=== PATIENT | male | born 2000 | race Caucasian/White ===

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

== ENCOUNTER 2020-07-05 15:01 | Emergency (ER) | payer BC ==
[~2020-07-05] VITALS: Ht 175.3 cm; Wt 52.2 kg
[2020-07-05] MEDS ORDERED: ONDANSETRON PF 4 MG/2 ML VIAL. IVP ONE (15:30)
[2020-07-05] MEDS ORDERED: IV NORMAL SALINE 1,000ML 1,000 ML IV SCH (15:30)
--- NOTE | 2020-07-05 15:40 | PHYS DOC ---
Past History Past Medical History: Asthma Additional Past Medical Histor: myocarditis Past Surgical History: Appendectomy, Cholecystectomy, Tonsillectomy Additional Past Surgical Histo: Neck surgery Smoking: Non-smoker Additional Smoking Information: vapes Alcohol Use: Rarely Drug Use: None Adult General Chief Complaint Chief Complaint: MULTIPLE COMPLAINTS [facility] HPI Patient is a 50-year-old male with a reported past medical history of asthma now presenting emergency department for new onset of nausea vomiting. Patient states he woke up at 9:00 this morning and had cold sweats. Patient states that since that time he has had 9 episodes of nonbloody nonbilious vomiting as well as watery diarrhea. Patient is complaining of mild midepigastric abdominal pain and also complains of sensation of difficulty breathing. Does complain of some chest tightness but denies any cough, fever, dizziness or lightheadedness. Review of Systems Review of Systems Constitutional: Denies fever or chills [] Eyes: Denies change in visual acuity, redness, or eye pain [] HENT: Denies nasal congestion or sore throat [] Respiratory: Denies cough or shortness of breath [] Cardiovascular: No additional information not addressed in HPI [] GI: Denies abdominal pain, nausea, vomiting, bloody stools or diarrhea [] : Denies dysuria or hematuria [] Musculoskeletal: Denies back pain or joint pain [] Integument: Denies rash or skin lesions [] Neurologic: Denies headache, focal weakness or sensory changes [] Endocrine: Denies polyuria or polydipsia [] All other systems were reviewed and found to be within normal limits, except as documented in this note. Current Medications Current Medications Current Medications Medications (Trade) Dose Ordered Sig/Faraz Start Time Stop Time Status Last Admin Dose Admin Ondansetron HCl (Zofran) 4 mg 1X ONCE 07/05/20 15:30 07/05/20 15:31 UNV Sodium Chloride 1,000 ml @ 1,000 mls/hr Q1H 07/05/20 15:30 07/05/20 16:29 UNV Allergies Allergies Allergies Coded Allergies Type Severity Reaction Last Updated Verified benzonatate Allergy Mild 07/05/20 Yes Physical Exam Physical Exam Constitutional: Well developed, well nourished, no acute distress, non-toxic appearance. [] HENT: Normocephalic, atraumatic, bilateral external ears normal, oropharynx moist, no oral exudates, nose normal. [] Eyes: PERRLA, EOMI, conjunctiva normal, no discharge. [] Neck: Normal range of motion, no tenderness, supple, no stridor. [] Cardiovascular:Heart rate regular rhythm, no murmur [] Lungs & Thorax: Bilateral breath sounds clear to auscultation [] Abdomen: Bowel sounds normal, soft, no tenderness, no masses, no pulsatile masses. [] Skin: Warm, dry, no erythema, no rash. [] Back: No tenderness, no CVA tenderness. [] Extremities: No tenderness, no cyanosis, no clubbing, ROM intact, no edema. [] Neurologic: Alert and oriented X 3, normal motor function, normal sensory function, no focal deficits noted. [] Psychologic: Affect normal, judgement normal, mood normal. [] Current Patient Data Vital Signs Vital Signs Date Time Temp Pulse Resp B/P (MAP) Pulse Ox O2 Delivery O2 Flow Rate FiO2 07/05/20 15:08 97.7 64 20 150/76 (100) 100 EKG EKG [] Radiology/Procedures Radiology/Procedures [] Heart Score C/O Chest Pain: Yes HEART Score for Chest Pain: HEART Score for Chest Pain Response (Comments) Value History Slighlty/Non-Suspicious 0 ECG Normal 0 Age < 45 0 Risk Factors No Risk Factors 0 Troponin < Normal Limit 0 Total 0 Risk Factors: Risk Factors: DM, Current or recent (<one month) smoker, HTN, HLP, family history of CAD, obesity. Risk Scores: Risk Factors: DM, Current or recent (<one month) smoker, HTN, HLP, family history of CAD, obesity. Course & Med Decision Making Course & Med Decision Making Pertinent Labs and Imaging studies reviewed. (See chart for details) 19-year-old male presenting the emergency department new onset of vomiting diarrhea most consistent with an acute gastroenteritis. No significant wheezing on exam. Will obtain KUB, labs and treat symptomatically and reevaluate. 17:07 -labs reviewed and unremarkable. Patient states his symptoms have improved. This time will discharge home with Zofran and PCP follow-up Estefanía Disclaimer Dragon Disclaimer This electronic medical record was generated, in whole or in part, using a voice recognition dictation system. Departure Departure: Impression: Primary Impression: Gastroenteritis Disposition: 01 DC HOME SELF CARE/HOMELESS Condition: GOOD Referrals: JJ BALDERRAMA (PCP) Patient Instructions: Viral Gastroenteritis Additional Instructions: EMERGENCY DEPARTMENT GENERAL DISCHARGE INSTRUCTIONS Thank you for coming to [facility] Emergency Department (ED) today and trusting us with you care. We trust that you had a positive experience in our Emergency Department. If you wish to speak to the department management, you may call the Director at [phone]. YOUR FOLLOW UP INSTRUCTIONS ARE FOLLOWS: 1. Do you have a private Doctor? If you do not have a private doctor, please ask for a resource list of physicians or clinics that may be able to assist you with follow up care. 2. The Emergency Physicain has interpreted your x-rays. The X-Ray specialist will also review them. If there is a change in the findings, you will be notified in 48 hours when at all possible. 3. A lab test or culture has been done, your results will be reviewed and you will be notified if you need a change in treatment. ADDITIONAL INSTRUCTIONS AND INFORMATION: 1. Your care today has been supervised by a physician who is specially trained in emergency care. Many problems require more than one evaluation for a complete diagnosis and treatment. We recommend that you schedule your follow up appointment as recommended to ensure complete treatment of you illness or injury. If you are unable to obtain follow up care and continue to have a problem, or if your condition worsens, we recommend that you return to the ED. 2. We are not able to safely determine your condition over the phone nor are we able to give sound medical advice over the phone. For these safety reasons, if you call for medical advice we will ask you to come to the ED for further evaluation. 3. If you have any questions regarding these discharge instructions please call the ED at [phone]. SAFETY INFORMATION: In the interest of safety, wellness, and injury prevention; we encourage you to wear your sealbelt, if you smoke; quite smoking, and we encourage family to use a protective helmet for bicycling and other sporting events that present an increased risk for head injury. IF YOUR SYMPTOMS WORSEN OR NEW SYMPTOMS DEVELOP, OR YOU HAVE CONCERNS ABOUT YOUR CONDITION; OR IF YOUR CONDITION WORSENS WHILE YOU ARE WAITING FOR YOUR FOLLOW UP APPOINTMENT; EITHER CONTACT YOUR PRIMARY CARE DOCTOR, THE PHYSICIAN WHOSE NAME AND NUMBER YOU WERE GIVEN, OR RETURN TO THE ED IMMEDIATELY. Scripts Ondansetron Hcl (ZOFRAN) 4 Mg Tablet 1 TAB PO PRN Q6HRS PRN for NAUSEA, #6 TAB Prov: NICK WATSON MD 07/05/20 NICK WATSON MD Jul 05, 2020 15:40
[2020-07-05 15:48] LABS: CALCIUM 9.5 mg/dL (8.5-10.1); GFR 96.3; POTASSIUM 4.3 mmol/L (3.5-5.1)
--- NOTE | 2020-07-05 15:52 | RAD ---
Supine abdomen. HISTORY: Abdominal pain Supine view was taken of the abdomen. There are juan from a prior surgery on the right. There is n onspecific bowel pattern without obstruction. There are no abnormal calcifications. IMPRESSION: 1. No bowel obstruction or acute finding in the abdomen. Electronically signed by: Masood Mariscal MD (07/05/2020 3:50 PM) [facility]
[2020-07-05 15:53] LABS: BASO # 0.1 x10^3/uL (0.0-0.2); BASO % 1 % (0-3); EOS # 0.1 x10^3/uL (0.0-0.7); EOS % 1 % (0-3); HEMATOCRIT 48.8 % (39.0-53.0); HEMOGLOBIN 16.4 g/dL (13.0-17.5); LYMPH # 0.5 x10^3/uL (1.0-4.8); LYMPH % 5 % (24-48); MEAN CORPUSCULAR HEMOGLOBIN 30 pg (25-35); MEAN CORPUSCULAR HGB CONC 34 g/dL (31-37); MEAN CORPUSCULAR VOLUME 90 fL (79-100); MONO # 0.2 x10^3/uL (0.0-1.1); MONO % 2 % (0-9); NEUT # 10.9 x10^3uL (1.8-7.7); NEUT % 92 % (31-73); PLATELET COUNT 216 x10^3/uL (140-400); RED BLOOD COUNT 5.46 x10^6/uL (4.30-5.70); WHITE BLOOD COUNT 11.8 x10^3/uL (4.0-11.0)
[2020-07-05 15:54] LABS: ALBUMIN 4.4 g/dL (3.4-5.0); ALBUMIN/GLOBULIN RATIO 1.2 (1.0-1.7); TOTAL BILIRUBIN 0.5 mg/dL (0.2-1.0)
[2020-07-05] MEDS ORDERED: ONDA4TAB7 PO (17:09)
[2020-07-05 17:20] VITALS: BP 119/68
[2020-07-05 17:37] LABS: BACTERIA,URINE 0 /HPF (0-FEW); BILIRUBIN,URINE NEG (NEG); CLARITY,URINE CLEAR; COLOR,URINE YELLOW; GLUCOSE,URINE NEG (NEG); NITRITE,URINE NEG (NEG); RBC,URINE 0 /HPF (0-2); UROBILINOGEN,URINE 0.2 mg/dL (0.2 mg/dL)
== END 2020-07-05 17:25 | disposition home or self-care (01) ==
LOC: ER 15:01
DX: K52.9 Noninfective gastroenteritis and colitis, unspecified (principal); R10.13 Epigastric pain; J45.909 Unspecified asthma, uncomplicated; F17.220 Nicotine dependence, chewing tobacco, uncomplicated; Z88.8 Allergy status to other drugs, medicaments and biological substances
CPT/HCPCS: 36415; 74018; 80053; 81001; 83690; 85025; 96361; 96374; 99284; J2405; J7030

== ENCOUNTER 2020-09-09 09:56 | Emergency (ER) | payer BC ==
[~2020-09-09] VITALS: Ht 175.3 cm; Wt 55.0 kg
[~2020-09-09 09:56] MED LIST: ONDA4TAB7 PO
[2020-09-09] MEDS ORDERED: ASPIRIN CHEWABLE 81 MG TABLET. PO ONE (10:15)
[2020-09-09] MEDS ORDERED: IV NORMAL SALINE 1,000ML 1,000 ML IV ONE (10:15)
--- NOTE | 2020-09-09 10:34 | RAD ---
Study: XR CHEST 1V Indication: Chest pain. Comparison: 12/27/2019 Findings: The cardiomediastinal silhouette and linnea are within normal limits. No localized airspace opacity, pl eural effusion or pneumothorax. Impression: No acute radiographic abnormality of the chest. No relevant change from the 12/27/2019 comparison. Electronically signed by: MICHAEL BLACKWELL MD (09/09/2020 10:31 AM) [id number]
--- NOTE | 2020-09-09 10:41 | PHYS DOC ---
Past History Past Medical History: Asthma Additional Past Medical Histor: myocarditis Past Surgical History: Appendectomy, Cholecystectomy, Tonsillectomy Additional Past Surgical Histo: Neck surgery Smoking: Non-smoker Additional Smoking Information: vapes Alcohol Use: Rarely Drug Use: None General Adult EDM: Chief Complaint: CHEST PAIN HPI: HPI: 19-year-old male presents with chest pain. The patient has been having chest pain for the last several days. It started out very minor and has gotten worse each day. Patient states it starts at the bottom of the sternum and radiates upwards. He sometimes feels it between his shoulder blades. It is there most of the day but has episodes where he gets more intense. It is generally mild to moderate but sometimes spikes to severe. He has had a little bit of shortness of breath with it this morning. He decided to get checked out. Patient does not smoke cigarettes. He does vape, but only store-bought products. Denies alcohol or drug use except for marijuana. Last marijuana was 2 days ago. He is on Vyvanse by prescription. 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 He is walking and moving and lifting things all day. Denies fever or chills. Review of Systems: Review of Systems: Constitutional: Denies fever or chills Eyes: Denies change in visual acuity HENT: Denies nasal congestion or sore throat Respiratory: Denies cough or shortness of breath Cardiovascular: Denies chest pain or edema GI: Denies abdominal pain, nausea, vomiting, bloody stools or diarrhea : Denies dysuria Musculoskeletal: Denies back pain or joint pain Integument: Denies rash Neurologic: Denies headache, focal weakness or sensory changes Endocrine: Denies polyuria or polydipsia Lymphatic: Denies swollen glands Psychiatric: Denies depression or anxiety Current Medications: Current Meds: Current Medications Medications (Trade) Dose Ordered Sig/Faraz Start Time Stop Time Status Last Admin Dose Admin Aspirin (Aspirin Chewable) 324 mg 1X ONCE 09/09/20 10:15 09/09/20 10:16 DC 09/09/20 10:22 324 MG Sodium Chloride 1,000 ml @ 1,000 mls/hr 1X ONCE 09/09/20 10:15 09/09/20 11:14 09/09/20 10:25 1,000 MLS/HR Allergies: Allergies: Allergies Coded Allergies Type Severity Reaction Last Updated Verified benzonatate Allergy Mild 09/09/20 Yes coconut Allergy Unknown 09/09/20 Yes Physical Exam: PE: Constitutional: Well developed, well nourished, no acute distress, non-toxic appearance. [] HENT: Normocephalic, atraumatic, bilateral external ears normal, oropharynx moist, no oral exudates, nose normal. [] Eyes: PERRLA, EOMI, conjunctiva normal, no discharge. [] Neck: Normal range of motion, no tenderness, supple, no stridor. [] Cardiovascular:Heart rate regular rhythm, no murmur [] Lungs & Thorax: Bilateral breath sounds clear to auscultation [] Abdomen: Bowel sounds normal, soft, no tenderness, no masses, no pulsatile masses. [] Skin: Warm, dry, no erythema, no rash. [] Back: No tenderness, no CVA tenderness. [] Extremities: No tenderness, no cyanosis, no clubbing, ROM intact, no edema. [] Neurologic: Alert and oriented X 3, normal motor function, normal sensory function, no focal deficits noted. [] Psychologic: Affect normal, judgement normal, mood normal. [] Current Patient Data: Vital Signs: Vital Signs Date Time Temp Pulse Resp B/P (MAP) Pulse Ox O2 Delivery O2 Flow Rate FiO2 09/09/20 10:06 97.7 67 20 117/65 (82) 100 EKG: EKG: Sinus rhythm, rate 64, normal axis, no ST elevation or depression. [] Radiology/Procedures: Radiology/Procedures: [] Impressions: Study: XR CHEST 1V Indication: Chest pain. Comparison: 12/27/2019 Findings: The cardiomediastinal silhouette and linnea are within normal limits. No localized airspace opacity, pleural effusion or pneumothorax. Impression: No acute radiographic abnormality of the chest. No relevant change from the 12/27/2019 comparison. Electronically signed by: MICHAEL BLACKWELL MD (09/09/2020 10:31 AM) [id number] DICTATED AND SIGNED BY: MICHAEL BLACKWELL MD DATE: 09/09/20 1031 CC: ANA PAULA GONZALEZ DO; JJ BALDERRAMA LA ~MTH0 0 Heart Score: C/O Chest Pain: Yes HEART Score for Chest Pain: HEART Score for Chest Pain Response (Comments) Value History Slighlty/Non-Suspicious 0 ECG Normal 0 Age < 45 0 Risk Factors 1 or 2 Risk Factors 1 Troponin < Normal Limit 0 Total 1 Risk Factors: Risk Factors: DM, Current or recent (<one month) smoker, HTN, HLP, family history of CAD, obesity. Risk Scores: Score 0 - 3: 2.5% MACE over next 6 weeks - Discharge Home Score 4 - 6: 20.3% MACE over next 6 weeks - Admit for Clinical Observation Score 7 - 10: 72.7% MACE over next 6 weeks - Early Invasive Strategies Course & Med Decision Making: Course & Med Decision Making Pertinent Labs and Imaging studies reviewed. (See chart for details) The patient's EKG is unremarkable. His chest x-ray is unremarkable. I have ordered Toradol for his discomfort. The patient's labs are unremarkable. His troponin is negative. I believe this is likely musculoskeletal. I advised supportive care such as ibuprofen and rest if possible. He is stable for discharge at this time. [] Rickyon Disclaimer: Estefanía Disclaimer: This electronic medical record was generated, in whole or in part, using a voice recognition dictation system. Departure Departure: Impression: Primary Impression: Chest wall pain Disposition: HOME / SELF CARE / HOMELESS Condition: STABLE Referrals: JJ BALDERRAMA (PCP) Patient Instructions: Chest Wall Pain, [id number] ANA PAULA GONZALEZ DO September 09, 2020 10:41
[2020-09-09] MEDS ORDERED: KETOROLAC 30 MG/ML VIAL. IVP ONE (10:45)
[2020-09-09 11:01] LABS: BASO # 0.1 x10^3/uL (0.0-0.2); BASO % 1 % (0-3); EOS # 0.5 x10^3/uL (0.0-0.7); EOS % 6 % (0-3); HEMATOCRIT 43.9 % (39.0-53.0); HEMOGLOBIN 14.7 g/dL (13.0-17.5); LYMPH % 22 % (24-48); MEAN CORPUSCULAR HEMOGLOBIN 31 pg (25-35); MEAN CORPUSCULAR HGB CONC 34 g/dL (31-37); MEAN CORPUSCULAR VOLUME 92 fL (79-100); MONO # 0.6 x10^3/uL (0.0-1.1); MONO % 7 % (0-9); NEUT # 6.1 x10^3uL (1.8-7.7); NEUT % 65 % (31-73); PLATELET COUNT 203 x10^3/uL (140-400); RED BLOOD COUNT 4.76 x10^6/uL (4.30-5.70); RED CELL DISTRIBUTION WIDTH 13.9 % (11.5-14.5); WHITE BLOOD COUNT 9.3 x10^3/uL (4.0-11.0)
[2020-09-09 11:15] LABS: CALCIUM 9.3 mg/dL (8.5-10.1); CREATININE 0.7 mg/dL (0.7-1.3); GFR 145.3; POTASSIUM 4.8 mmol/L (3.5-5.1)
[2020-09-09 11:21] LABS: ALBUMIN 4.2 g/dL (3.4-5.0); ALBUMIN/GLOBULIN RATIO 1.4 (1.0-1.7); TOTAL BILIRUBIN 0.4 mg/dL (0.2-1.0); TOTAL PROTEIN 7.3 g/dL (6.4-8.2)
--- NOTE | 2020-09-09 11:44 | EKG ---
[address] [address] Test Date: 2020-09-09 Test Time: 10:11:03 Pat Name: SERGO VILLAGOMEZ Department: Room: Gender: M Oenologist: MANASA : 2000 Requested By: ANA PAULA GONZALEZ Order Number: [id number] Reading MD: Francisco J Wray Measurements Intervals [place] Rate: 64 P: 72 NC: 124 QRS: 86 QRSD: 76 T: 65 QT: 370 QTc: 385 Interpretive Statements SINUS RHYTHM Electronically Signed On 09-12-2020 15:30:11 CDT by Francisco J Wray
[2020-09-09 12:56] LABS: BARBITURATES NEG (NEG); BENZODIAZEPINES NEG (NEG); CANNABINOIDS POS (NEG); COCAINE NEG (NEG); METHADONE NEG (NEG); OPIATES NEG (NEG); PHENCYCLIDINE NEG (NEG)
[2020-09-09 12:58] LABS: AMPHETAMINE/METHAMPHETAMINE NEG (NEG)
[2020-09-09 13:02] LABS: BACTERIA,URINE MOD /HPF (0-FEW); BILIRUBIN,URINE NEG (NEG); CLARITY,URINE CLEAR; COLOR,URINE STRAW; GLUCOSE,URINE NEG (NEG); NITRITE,URINE NEG (NEG); RBC,URINE OCC /HPF (0-2); SQUAMOUS EPITHELIAL CELL,UR OCC /LPF; UROBILINOGEN,URINE 0.2 mg/dL (0.2 mg/dL)
[2020-09-09 13:05] VITALS: BP 91/49
== END 2020-09-09 13:25 | disposition home or self-care (01) ==
LOC: ER 09:56
DX: R07.89 Other chest pain (principal); J45.909 Unspecified asthma, uncomplicated; Z88.8 Allergy status to other drugs, medicaments and biological substances; Z90.49 Acquired absence of other specified parts of digestive tract
CPT/HCPCS: 36415; 71045; 80053; 80307; 81001; 84484; 85025; 87086; 93005; 96361; 96374; 99285; J1885; J7030

== ENCOUNTER 2020-10-27 17:16 | Emergency (ER) | payer BC ==
[~2020-10-27] VITALS: Ht 175.3 cm; Wt 53.3 kg
--- NOTE | 2020-10-27 17:48 | PHYS DOC ---
Past History Past Medical History: Asthma Additional Past Medical Histor: myocarditis (TYSON VAN APRN) Past Surgical History: Appendectomy, Cholecystectomy, Tonsillectomy Additional Past Surgical Histo: Neck surgery (TYSON VAN APRN) Smoking: Non-smoker Alcohol Use: Rarely Drug Use: None (TYSON VAN APRN) Adult General Chief Complaint Chief Complaint: PUNCTURE WOUND HPI HPI Patient is a 19-year-old male presents emergency department stating he suffered a laceration to his right flank area when his dog jumped off of him while he was not wearing a shirt to go sravani a cat. Patient states the dogs hind paw claws scratched him on his side deep enough to cause bleeding. Patient states he thinks he might need stitches. Patient reports his last tetanus immunization was last year. Patient reports an allergy to Tessalon Perle and benzod iazepines. Patient states he takes Vyvanse at home. Patient denies any other physical complaints or physical concerns. (TYSON VAN APRN) Review of Systems Review of Systems 14 body systems of review of systems have been reviewed. See HPI for pertinent positives and negative responses, otherwise all other systems are negative, nonpertinent or noncontributory. Constitutional: Negative except as outlined in HPI above. Skin: Negative except as outlined in HPI above. Eyes: Negative except as outlined in HPI above. HENT: Negative except as outlined in HPI above. Respiratory: Negative except as outlined in HPI above. Cardiovascular: Negative except as outlined in HPI above. GI: Negative except as outlined in HPI above. : Negative except as outlined in HPI above. Musculoskeletal: Negative except as outlined in HPI above. Integument: Negative except as outlined in HPI above. Neurologic: Negative except as outlined in HPI above. Endocrine: Negative except as outlined in HPI above. Lymphatic: Negative except as outlined in HPI above. Psychiatric: Negative except as outlined in HPI above. (TYSON VAN APRN) Allergies Allergies Allergies Coded Allergies Type Severity Reaction Last Updated Verified benzonatate Allergy Mild 09/09/20 Yes coconut Allergy Unknown 09/09/20 Yes (TYSON VAN APRN) Physical Exam Physical Exam Constitutional: Well developed, well nourished, no acute distress, non-toxic appearance. 19-year-old male in no apparent distress. HENT: Normocephalic, atraumatic. Eyes: Conjunctiva normal, no discharge. Neck: Normal range of motion, no stridor. Cardiovascular: No cyanosis appreciated, distal cap refill less than 2 seconds. Lungs & Thorax: Patient is in no respiratory distress, no audible adventitious lung sounds appreciated. Abdomen: Nontender, no abnormalities noted. Skin: Warm, dry, no erythema, no rash. At right flank there is a laceration injury consistent with dog paw scratch de jesus, linear lacerations partial- thickness 2.8 cm next to a 2.0 cm next to a 1.4 cm laceration, bleeding controlled. Back: No tenderness, no deformities. Extremities: No tenderness, no cyanosis, no clubbing, ROM intact, no edema. Neurologic: Alert and oriented X 3, normal motor function, normal sensory function, no focal deficits noted. Psychologic: Affect normal, judgement normal, mood normal. (TYSON VAN APRN) EKG EKG [] (TYSON VAN APRN) Radiology/Procedures Radiology/Procedures [] (TYSON VAN APRN) Heart Score C/O Chest Pain: No Risk Factors: Risk Factors: DM, Current or recent (<one month) smoker, HTN, HLP, family history of CAD, obesity. Risk Scores: Risk Factors: DM, Current or recent (<one month) smoker, HTN, HLP, family history of CAD, obesity. (TYSON VAN APRN) Course & Med Decision Making Course & Med Decision Making Pertinent Labs and Imaging studies reviewed. (See chart for details) 19-year-old male, vital signs reviewed, presents emergency department for laceration repair of right flank after dog paw claws lacerated him when chasing after a cat. See laceration repair note, patient given 1 [place] for pain. Tetanus immunization not indicated for this ED visit as patient reports tetanus was brought up-to-date approximately 1 year ago. Patient gave verbal understanding discharge home instructions, sutures out in 7 to 10 days, follow-up with PCP for suture removal, return to ER precautions or concerns, wound care and suture care, patient had no further questions or concerns, remains hemodynamically stable and nontoxic in appearance at disposition time, patient was discharged home without incident. (TYSON VAN APRN) Course & Med Decision Making Did not see or evaluate patient. Agree with BEATER ENGINEER HELPER's work-up and disposition per note. (NICHOLE CERAVNTES MD) Dragon Disclaimer Dragon Disclaimer This electronic medical record was generated, in whole or in part, using a voice recognition dictation system. (TYSON VAN APRN) Laceration Repair Lac Repair Indication: Laceration right flank Time: 1944 Confirmed: Patient, procedure, side, and site correct. Consent: Patient, has given verbal consent. Description/repair Procedure: The patient was placed in the appropriate position and anesthesia around the was achieved with 4 cc 2% lidocaine without epinephrine . The area was then cleansed with chlorhexidine soap, rinsed with copious amounts of normal saline. The laceration was explored for foreign bodies, there were no foreign bodies appreciated. The lacerations were repaired with 5-0 nylon. 2.8 cm laceration repaired with 6 interrupted sutures, 2.0 cm laceration was repaired with 1 interrupted suture as only 0.3 cm of laceration was partial-thickness, the remaining was superficial, laceration #3 length 1.4 cm was repaired with 3 interrupted sutures. The wound area was then dressed with dressed with bacitracin and covered with Band-Aid by ED nursing staff.. Complexity: Single layer. Post procedure exam: Circulation, motor, sensory examination intact, bleeding controlled. Total repaired wound length: 6.2 cm. Other Items: There were no other items The patient tolerated the procedure well. Complications: No complications. Performed by: Tyson Cuevas, BEATER ENGINEER HELPER-C Supervision: Dr. Cervantes was present for the critical aspects of the procedure including closure and post procedure exam. Total time: 15 minutes. (TYSON VAN APRN) Departure Departure: Impression: Primary Impression: Laceration of right flank Disposition: HOME / SELF CARE / HOMELESS Condition: GOOD Referrals: JJ BALDERRAMA (PCP) Patient Instructions: Laceration Care, Adult Additional Instructions: You were seen today in the emergency department for a laceration of your right flank area that was caused by your dog as it was jumping off of your lap to sravani a cat. You had 3 lacerations that required suturing, you have a total of 9 sutures. These require removal in 7 to 10 days. As we discussed please cleanse daily 2-3 times with soap and water, apply antibiotic ointment and cover with Band-Aid until sutures are removed. No swimming or submerging in water until sutures are removed. Please watch for signs and symptoms of infection as we discussed. You may follow-up with your primary care physician in 7 to 10 days for suture removal. Please return to the emergency department for worsening symptoms or other concerns. It was a pleasure taking care of you today in the emergency department and I thank you for allowing me to participate in your emergency healthcare needs. EMERGENCY DEPARTMENT GENERAL DISCHARGE INSTRUCTIONS Thank you for coming to [facility] (ED) today and trusting us with you care. We trust that you had a positivie experience in our Emergency Department. If you wish to speak to the department management, you may call the director at [phone]. YOUR FOLLOW UP INSTRUCTIONS ARE FOLLOWS: 1. Do you have a private Doctor? If you do not have a private doctor, please ask for a resource list of physicians or clinics that may be able to assist you with follow up care. 2. The Emergency Physician has interpreted your x-rays. The X-Ray specialist will also review them. If there is a change in the findings, you will be notified in 48 hours when at all possible. 3. A lab test or culture has been done, your results will be reviewed and you will be notified if you need a change in treatment. ADDITIONAL INSTRUCTIONS AND INFORMATION: 1. Your care today has been supervised by a physician who is specially trained in emergency care. Many problems require more than one evaluation for a complete diagnosis and treatment. We recommend that you schedule your follow up appointment as recommended to ensure complete treatment of you illness or injury. If you are unable to obtain follow up care and continue to have a problem, or if your condition worsens, we recommend that you return to the ED. 2. We are not able to safely determine your condition over the phone nor are we able to give sound medical advice over the phone. For these safety reasons, if you call for medical advice we will ask you to come to the ED for further evaluation. 3. If you have any questions regarding these discharge instructions please call the ED at [phone]. SAFETY INFORMATION: In the interest of safety, wellness, and injury prevention; we encourage you to wear your sealbelt, if you smoke; quite smoking, and we encourage family to use a protective helmet for bicycling and other sporting events that present an increased risk for head injury. IF YOUR SYMPTOMS WORSEN OR NEW SYMPTOMS DEVELOP, OR YOU HAVE CONCERNS ABOUT YOUR CONDITION; OR IF YOUR CONDITION WORSENS WHILE YOU ARE WAITING FOR YOUR FOLLOW UP APPOINTMENT; EITHER CONTACT YOUR PRIMARY CARE DOCTOR, THE PHYSICIAN WHOSE NAME AND NUMBER YOU WERE GIVEN, OR RETURN TO THE ED IMMEDIATELY. Problem Qualifiers Primary Impression: Laceration of right flank Encounter type: initial encounter Qualified Codes: S31.119A - Laceration without foreign body of abdominal wall, unspecified quadrant without penetration into peritoneal cavity, initial encounter TYSON VAN APRN Oct 27, 2020 17:48 NICHOLE CERVANTES MD Oct 27, 2020 22:52
[2020-10-27] MEDS ORDERED: LIDOCAINE 2% 20 ML VIAL. IJ ONE (18:15)
[2020-10-27] MEDS ORDERED: HYDROcodone/APAP 5/325MG 1 TAB TABLET PO ONE (18:15)
[2020-10-27] MEDS ORDERED: BACITRACIN ZINC TOPICAL OINT PACKET. TP ONE (20:15)
[2020-10-27 20:21] VITALS: BP 100/50
== END 2020-10-27 20:22 | disposition home or self-care (01) ==
LOC: ER 17:16
DX: S31.119A Laceration without foreign body of abdominal wall, unspecified quadrant without penetration into peritoneal cavity, initial encounter (principal); J45.909 Unspecified asthma, uncomplicated; Z91.018 Allergy to other foods; Z88.8 Allergy status to other drugs, medicaments and biological substances; W54.0XXA Bitten by dog, initial encounter; Y93.89 Activity, other specified; Y92.89 Other specified places as the place of occurrence of the external cause; Y99.8 Other external cause status
CPT/HCPCS: 12002; 99283; J2001

== ENCOUNTER 2021-04-03 21:14 | Emergency (ER) | payer BC ==
[~2021-04-03] VITALS: Ht 175.3 cm; Wt 55.7 kg
[2021-04-03 21:57] LABS: BASO % 0 % (0-3); EOS % 0 % (0-3); HEMATOCRIT 45.1 % (39.0-53.0); HEMOGLOBIN 15.6 g/dL (13.0-17.5); LYMPH # 0.6 x10^3/uL (1.0-4.8); LYMPH % 6 % (24-48); MEAN CORPUSCULAR HEMOGLOBIN 31 pg (25-35); MEAN CORPUSCULAR HGB CONC 35 g/dL (31-37); MEAN CORPUSCULAR VOLUME 89 fL (79-100); MONO # 0.4 x10^3/uL (0.0-1.1); MONO % 4 % (0-9); NEUT % 90 % (31-73); PLATELET COUNT 211 x10^3/uL (140-400); RED BLOOD COUNT 5.05 x10^6/uL (4.30-5.70); RED CELL DISTRIBUTION WIDTH 12.7 % (11.5-14.5); WHITE BLOOD COUNT 11.1 x10^3/uL (4.0-11.0)
[2021-04-03 22:05] LABS: CALCIUM 9.4 mg/dL (8.5-10.1); CREATININE 1.1 mg/dL (0.7-1.3); GFR 85.3; POTASSIUM 3.6 mmol/L (3.5-5.1)
[2021-04-03 22:11] LABS: ALBUMIN 4.3 g/dL (3.4-5.0); ALBUMIN/GLOBULIN RATIO 1.5 (1.0-1.7); TOTAL BILIRUBIN 0.5 mg/dL (0.2-1.0); TOTAL PROTEIN 7.2 g/dL (6.4-8.2)
[2021-04-03] MEDS ORDERED: METOCLOPRAMIDE HCL 10 MG/2 ML VIAL. IVP ONE (23:00)
[2021-04-03] MEDS ORDERED: diphenhydrAMINE 50 MG/ML VIAL IVP ONE (23:00)
[2021-04-03] MEDS ORDERED: FAMOTIDINE 20 MG/2 ML VIAL IVP ONE (23:00)
[2021-04-03] MEDS ORDERED: IV NORMAL SALINE 1,000ML 1,000 ML IV ONE (23:00)
--- NOTE | 2021-04-03 23:31 | PHYS DOC ---
Past History Past Medical History: Asthma Additional Past Medical Histor: myocarditis (OWEN HERNANDEZ) Past Surgical History: Appendectomy, Cholecystectomy, Tonsillectomy (OWEN HERNANDEZ) Smoking: Non-smoker Alcohol Use: None Drug Use: None (OWEN HERNANDEZ) General Adult EDM: Chief Complaint: GI PROBLEM HPI: HPI: Patient is a 20 year old male who presents with pain all over his body. Patient is a difficult historian. Originally, he reported left upper chest wall pain, but that complaint changed to generalized thoracic pain. He describes the pain as "creatures crawling all around inside [his] body and stabbing him." Patient reports he woke up with this pain and sensation. He reports associated nausea and vomiting. Patient smoked marijuana later in the day. He states he took a Zofran earlier today without symptom relief. Patient denies any other drug use. (OWEN HERNANDEZ) Review of Systems: Review of Systems: Constitutional: Denies fever or chills Eyes: Denies change in visual acuity HENT: Denies nasal congestion or sore throat Respiratory: Denies cough or shortness of breath Cardiovascular: See HPI GI: See HPI : Denies dysuria or hematuria Musculoskeletal: Denies back pain or joint pain Integument: See HPI Neurologic: Denies headache, focal weakness or sensory changes (OWEN HERNANDEZ) Current Medications: Current Meds: Current Medications Medications (Trade) Dose Ordered Sig/Faraz Start Time Stop Time Status Last Admin Dose Admin Diphenhydramine HCl (Benadryl) 25 mg 1X ONCE 04/03/21 23:00 04/03/21 23:01 DC 04/03/21 22:40 25 MG Famotidine (Pepcid Vial) 20 mg 1X ONCE 04/03/21 23:00 04/03/21 23:01 DC 04/03/21 22:40 20 MG Metoclopramide HCl (Reglan Vial) 10 mg 1X ONCE 04/03/21 23:00 04/03/21 23:01 DC 04/03/21 22:40 10 MG Sodium Chloride 1,000 ml @ 1,000 mls/hr 1X ONCE 04/03/21 23:00 04/03/21 23:59 04/03/21 22:40 1,000 MLS/HR (OWEN HERNANDEZ) Allergies: Allergies: Allergies Coded Allergies Type Severity Reaction Last Updated Verified benzonatate Allergy Mild 09/09/20 Yes coconut Allergy Unknown 09/09/20 Yes haloperidol Allergy Unknown 04/03/21 Yes (OWEN HERNANDEZ) Physical Exam: PE: Constitutional: Well developed, well nourished, patient is tearful and appears in distress, non-toxic appearance. HENT: Normocephalic, atraumatic, bilateral external ears without deformity or, oropharynx moist, no oral exudates, nose without deformity or discharge. Eyes: PERRLA, EOMI, conjunctiva normal, no discharge. Neck: Normal range of motion, no tenderness, supple, no stridor, no JVD. Cardiovascular: Heart rate regular rhythm, no murmur. Lungs & Thorax: Bilateral breath sounds clear to auscultation. Abdomen: Bowel sounds normal, soft, voluntary guarding and diffuse tenderness, no masses, no pulsatile masses. Skin: Warm, dry, no erythema, no rash. Extremities: No tenderness, no cyanosis, no clubbing, ROM intact, no edema. Neurologic: Alert and oriented x4, no focal deficits noted. Psychologic: Affect normal, judgement normal, mood normal. (OWEN HERNANDEZ) Current Patient Data: Labs: Laboratory Tests Test 04/03/21 21:37 04/03/21 23:22 White Blood Count 11.1 x10^3/uL (4.0-11.0) Red Blood Count 5.05 x10^6/uL (4.30-5.70) Hemoglobin 15.6 g/dL (13.0-17.5) Hematocrit 45.1 % (39.0-53.0) Mean Corpuscular Volume 89 fL (79-100) Mean Corpuscular Hemoglobin 31 pg (25-35) Mean Corpuscular Hemoglobin Concent 35 g/dL (31-37) Red Cell Distribution Width 12.7 % (11.5-14.5) Platelet Count 211 x10^3/uL (140-400) Neutrophils (%) (Auto) 90 % (31-73) Lymphocytes (%) (Auto) 6 % (24-48) Monocytes (%) (Auto) 4 % (0-9) Eosinophils (%) (Auto) 0 % (0-3) Basophils (%) (Auto) 0 % (0-3) Neutrophils # (Auto) 10.0 x10^3uL (1.8-7.7) Lymphocytes # (Auto) 0.6 x10^3/uL (1.0-4.8) Monocytes # (Auto) 0.4 x10^3/uL (0.0-1.1) Eosinophils # (Auto) 0.0 x10^3/uL (0.0-0.7) Basophils # (Auto) 0.0 x10^3/uL (0.0-0.2) Sodium Level 139 mmol/L (136-145) Potassium Level 3.6 mmol/L (3.5-5.1) Chloride Level 103 mmol/L (98-107) Carbon Dioxide Level 22 mmol/L (21-32) Anion Gap 14 (6-14) Blood Urea Nitrogen 9 mg/dL (8-26) Creatinine 1.1 mg/dL (0.7-1.3) Estimated GFR (Cockcroft-Gault) 85.3 BUN/Creatinine Ratio 8 (6-20) Glucose Level 91 mg/dL (70-99) Calcium Level 9.4 mg/dL (8.5-10.1) Total Bilirubin 0.5 mg/dL (0.2-1.0) Aspartate Amino Transf (AST/SGOT) 15 U/L (15-37) Alanine Aminotransferase (ALT/SGPT) 17 U/L (16-63) Alkaline Phosphatase 66 U/L (46-116) Troponin I High Sensitivity 5 ng/L (4-75) Total Protein 7.2 g/dL (6.4-8.2) Albumin 4.3 g/dL (3.4-5.0) Albumin/Globulin Ratio 1.5 (1.0-1.7) Urine Collection Type Unknown Urine Color Yellow Urine Clarity Clear Urine pH 7.0 Urine Specific Isabella 1.025 Urine Protein Neg (NEG-TRACE) Urine Glucose (UA) Neg mg/dL (NEG) Urine Ketones (Stick) Neg mg/dL (NEG) Urine Blood Neg (NEG) Urine Nitrite Neg (NEG) Urine Bilirubin Neg (NEG) Urine Urobilinogen Dipstick 1.0 mg/dL (0.2 mg/dL) Urine Leukocyte Esterase Neg (NEG) Urine RBC 0 /HPF (0-2) Urine WBC Occ /HPF (0-4) Urine Squamous Epithelial Cells None /LPF Urine Bacteria 0 /HPF (0-FEW) Urine Opiates Screen Neg (NEG) Urine Methadone Screen Neg (NEG) Urine Barbiturates Neg (NEG) Urine Phencyclidine Screen Neg (NEG) Urine Amphetamine/Methamphetamine Neg (NEG) Urine Benzodiazepines Screen Neg (NEG) Urine Cocaine Screen Neg (NEG) Urine Cannabinoids Screen Pos (NEG) Urine Ethyl Alcohol Neg (NEG) Vital Signs: Vital Signs Date Time Temp Pulse Resp B/P (MAP) Pulse Ox O2 Delivery O2 Flow Rate FiO2 04/03/21 21:27 97.8 99 20 121/72 (88) 100 Room Air (OWEN HERNANDEZ) EKG: EKG: EKG Interpreted by Dr. Guevara at 2134: Sinus tachycardia 110 beats per minute with regular rhythm, no ectopic beats. QT 312 ms/QTc 427 ms. No STEMI. (OWEN HERNANDEZ) Heart Score: C/O Chest Pain: Yes HEART Score for Chest Pain: HEART Score for Chest Pain Response (Comments) Value History Slighlty/Non-Suspicious 0 ECG Normal 0 Age < 45 0 Risk Factors No Risk Factors 0 Troponin < Normal Limit 0 Total 0 (OWEN HERNANDEZ) Course & Med Decision Making: Course & Med Decision Making Pertinent Labs and Imaging studies reviewed. (See chart for details) 20-year-old male presents with alternating complaints of abdominal pain and chest pain with a sensation of "creatures crawling inside" of him and "stabbing" him. He appears uncomfortable and tearful. Work-up today will include labs, urinalysis, urine drug screen, EKG. Work-up today is largely reassuring. Urine drug screen did come back positive for marijuana. On reevaluation, patient is sleeping comfortably. He will be discharged home with his father with a prescription for Reglan. (OWEN HERNANDEZ) Course & Med Decision Making I was the Attending physician on the above date of service of this patient. This patient was evaluated, examined, treated, and dispositioned from the emergency department by the mid-level practitioner. Although I was working at the time , no assistance was requested. Electronically signed, Elisabeth Guevara DO (ELISABETH GUEVARA DO) Estefanía Disclaimer: Estefanía Disclaimer: This electronic medical record was generated, in whole or in part, using a voice recognition dictation system. (OWEN HERNANDEZ) Departure Departure: Impression: Primary Impression: Cannabinoid hyperemesis syndrome Disposition: HOME / SELF CARE / HOMELESS Condition: STABLE Referrals: JJ BALDERRAMA (PCP) Patient Instructions: Marijuana Abuse-Brief Additional Instructions: Your work-up today was very reassuring. Prescription was provided to you for the antinausea medication that you received here in the emergency department. Please return to the emergency department if your symptoms return and are uncontrolled at home, or if you develop any new symptoms. Scripts Metoclopramide Hcl (REGLAN) 10 Mg Tablet 1 TAB PO PRN Q6-8HRS PRN for NAUSEA/VOMITING, #20 TAB 0 Refills Prov: OWEN HERNANDEZ 04/04/21 OWEN HERNANDEZ Apr 03, 2021 23:31 ELISABETH GUEVARA DO Apr 04, 2021 01:33
[2021-04-03 23:59] LABS: BARBITURATES NEG (NEG); BENZODIAZEPINES NEG (NEG); CANNABINOIDS POS (NEG); COCAINE NEG (NEG); METHADONE NEG (NEG); OPIATES NEG (NEG); PHENCYCLIDINE NEG (NEG)
[2021-04-04] MEDS ORDERED: IV NORMAL SALINE 1,000ML 1,000 ML IV ONE
[2021-04-04 00:03] LABS: BACTERIA,URINE 0 /HPF (0-FEW); BILIRUBIN,URINE NEG (NEG); CLARITY,URINE CLEAR; COLOR,URINE YELLOW; GLUCOSE,URINE NEG (NEG); NITRITE,URINE NEG (NEG); RBC,URINE 0 /HPF (0-2); WBC,URINE OCC /HPF (0-4)
[2021-04-04 00:08] LABS: AMPHETAMINE/METHAMPHETAMINE NEG (NEG)
[2021-04-04] MEDS ORDERED: METO10TA81 PO (00:17)
[2021-04-04 00:19] VITALS: BP 110/55
--- NOTE | 2021-04-04 03:36 | EKG ---
[address] [address] Test Date: 2021-04-03 Test Time: 21:31:03 Pat Name: SERGO VILLAGOMEZ Department: Room: Gender: M Oil Field Laborer: : 2000 Requested By: ELISABETH GUEVARA Order Number: [id number] Reading MD: Measurements Intervals Shelly Rate: 110 P: 90 MI: 116 QRS: 91 QRSD: 82 T: 66 QT: 312 QTc: 427 Interpretive Statements SINUS TACHYCARDIA RIGHTWARD AXIS R-S TRANSITION ZONE IN V LEADS DISPLACED TO THE RIGHT NO SPECIFIC ECG ABNORMALITIES RI6.02 No previous ECG available for comparison
== END 2021-04-04 00:35 | disposition home or self-care (01) ==
LOC: ER 21:15
DX: R07.89 Other chest pain (principal); F12.188 Cannabis abuse with other cannabis-induced disorder; J45.909 Unspecified asthma, uncomplicated; Z90.49 Acquired absence of other specified parts of digestive tract
CPT/HCPCS: 36415; 80053; 80307; 81001; 84484; 85025; 93005; 96361; 96374; 96375; 99284; J1200; J2765; J3490; J7030

== ENCOUNTER 2021-04-19 15:34 | Emergency (ER) | payer BC ==
[~2021-04-19] VITALS: Ht 177.8 cm; Wt 54.0 kg
[~2021-04-19 15:34] MED LIST changes: +METO10TA81 PO
[2021-04-19 16:08] VITALS: BP 97/63
--- NOTE | 2021-04-19 16:45 | PHYS DOC ---
Past History Past Medical History: Asthma Additional Past Medical Histor: myocarditis (JAREKCARLOS Vladimir [employer] SPECIALIST) Past Surgical History: Appendectomy, Cholecystectomy, Tonsillectomy (JAREKCARLOS Vladimir [employer] SPECIALIST) Smoking: Non-smoker Alcohol Use: None Drug Use: None (CARLOS TILLEY Vladimir [employer]ICATION[employer] SPECIALIST) Adult General Chief Complaint Chief Complaint: HEADACHE HPI HPI Patient is a 20-year-old male patient who presents to the ED today with multiple complaints. Patient states he hit his left nose with a wooden board he was drilling on Friday while making a dog pen. Patient denies any loss of consciousness. He states since Friday he has had 7 out of 10 headache, nose pain, dizziness, visual changes and believes he has a concussion. Denies any nausea, vomiting. He states he was around several family members during [place] that had COVID19. (CARLOS TILLEY Vladimir [employer] PUBLICATION[employer] SPECIALIST) Review of Systems Review of Systems Constitutional:Denies fever, chills, body aches Eyes: Denies change in visual acuity, redness, or eye pain [] HENT: Reports nasal injury. Denies nasal congestion or sore throat [] Respiratory: Denies cough or shortness of breath [] Cardiovascular: No additional information not addressed in HPI [] GI: Denies nausea and vomiting. Denies abdominal pain, bloody stools or diarrhea [] : Denies dysuria or hematuria [] Musculoskeletal: Denies back pain or joint pain [] Integument: Reports headache, dizziness, vision changes, denies rash or skin lesions [] Neurologic: Reports head injury, denies focal weakness or sensory changes [] All other systems were reviewed and found to be within normal limits, except as documented in this note. (CARLOS TILLEY Vladimir [employer]ICATION[employer] SPECIALIST) Allergies Allergies Allergies Coded Allergies Type Severity Reaction Last Updated Verified benzonatate Allergy Mild 09/09/20 Yes coconut Allergy Unknown 09/09/20 Yes haloperidol Allergy Unknown 04/03/21 Yes (JAREKCARLOS Vladimir [employer] SPECIALIST) Physical Exam Physical Exam Constitutional: Well developed, well nourished, no acute distress, non-toxic appearance. [] HENT: Normocephalic, bilateral external ears normal, oropharynx moist, no oral exudates, nose normal. [] Eyes: PERRLA, EOMI, conjunctiva normal, no discharge. [] Neck: Normal range of motion, no tenderness, supple, no stridor. [] Cardiovascular:Heart rate regular rhythm, no murmur [] Lungs & Thorax: Bilateral breath sounds clear to auscultation [] Abdomen: Bowel sounds normal, soft, no tenderness, no masses, no pulsatile masses. [] Skin: Warm, dry, no erythema, no rash. [] Back: No tenderness, no CVA tenderness. [] Extremities: No tenderness, no cyanosis, no clubbing, ROM intact, no edema. [] Neurologic: Alert and oriented X 3, normal motor function, normal sensory function, no focal deficits noted. Cranial nerves II through XII Psychologic: Affect normal, judgement normal, mood normal. [] (CARLOS TILLEY [employer]ICATION[employer] SPECIALIST) Current Patient Data Vital Signs Vital Signs Date Time Temp Pulse Resp B/P (MAP) Pulse Ox O2 Delivery O2 Flow Rate FiO2 04/19/21 16:08 99.2 113 20 97/63 (74) 99 Room Air (CARLOS TILLEY [employer] SPECIALIST) EKG EKG [] (CARLOS TILLEY [employer] SPECIALIST) Radiology/Procedures Radiology/Procedures []PROCEDURE: CT HEAD AND MAXILLOFACIAL WO Exam: CT head and maxillofacial without contrast INDICATION: Hit in nose TECHNIQUE: Sequential axial images through the head and maxillofacial were obtained without the administration of IV contrast. Exposure: One or more of the following in the visualized dose reduction techniques were utilized for this examination: 1. Automated exposure control 2. Adjustment of the MA and/or KV according to patient size 3. Use of iterative of reconstructive technique Comparisons: None FINDINGS: Head: There is a subtle hyperdensity at the left frontal lobe sulcus series 2 image 17 of 30. There is no midline shift or sulcal effacement. No acute vascular territory infarction is identified. [place]-white distinction is preserved. The ventricular system is within normal limits without compression hydrocephalus. The basal cisterns are well maintained. Face: The visualized portions of the paranasal sinuses and mastoid air cells are well- pneumatized. Mildly displaced bilateral nasal bone fractures are noted. Globes and orbital contents are normal. IMPRESSION: 1. Subtle hyperdensity at the left frontal lobe sulcus favored represent small amount of subarachnoid hemorrhage. Follow-up MRI of the brain is recommended to exclude other causes. 2. Bilateral nasal bone fractures. FOR INTERNAL CODING PURPOSES Critical result: Findings discussed with CARLOS TILLEY APRN at 04/19/2021 4:55 PM. RESULT CODE: (C) Electronically signed by: Jarad Oglesby MD (04/19/2021 4:55 PM) [facility] DICTATED AND SIGNED BY: JARAD OGLESBY MD DATE: 04/19/21 0834 CC: EMERGENCY,DEPARTMENT; JJ BALDERRAMA; ROSELINECARLOS Roque Vladimir RODRIGUEZ ~MTH0 0 (CARLOS TILLEY APRN) Heart Score C/O Chest Pain: N/A Risk Factors: Risk Factors: DM, Current or recent (<one month) smoker, HTN, HLP, family history of CAD, obesity. Risk Scores: Risk Factors: DM, Current or recent (<one month) smoker, HTN, HLP, family history of CAD, obesity. (CARLOS TILLEY APRN) Course & Med Decision Making Course & Med Decision Making Pertinent Labs and Imaging studies reviewed. (See chart for details) This is a 20-year-old male patient presenting to the ED today to be evaluated for head injury and nose injuries. Patient states he was working on a dog pen when a piece of wood he was drilling hit him on the left side of his nose. Denies any loss of consciousness. Reports headache, dizziness, vision changes. CT of the head and maxillofacial were noted for Subtle hyperdensity at the left frontal lobe sulcus favored represent small amount of subarachnoid hemorrhage. Follow-up MRI of the brain is recommended to exclude other causes. Bilateral nasal bone fractures. Lamar ROSARIO for Neurosurgery was notified, she requested patient to be admitted in ICU at [facility] [place] Dr. King accepted patient at [facility] [place] (CARLOS TILLEY APRN) Course & Med Decision Making I was the Attending physician on the above date of service of this patient. This patient was evaluated, examined, treated, and dispositioned from the emergency department by the mid-level practitioner. I got involved in care after reviewing initial CT head and further reviewed findings of subarachnoid hemorrhage from an injury that occurred 5 days prior. I spoke with neurosurgery nurse practitioner who advised hospital transfer for ICU admission. Also spoke to Dr. Daly, hospitalist at [facility] who agreed to current plan of action for hospital transfer for admission. Electronically signed, Elisabeth Guevara DO (ELISABETH GUEVARA DO) Estefanía Disclaimer Dragon Disclaimer This electronic medical record was generated, in whole or in part, using a voice recognition dictation system. (CARLOS TILLEY APRN) NIH Stroke Scale: NIH Stroke Scale Response (Comments) Value Level of Consciousness: 0 Alert/Responsive 0 LOC Questions: 0 Answers both correctly 0 LOC Commands: 0 Performs both tasks 0 Best Gaze: 0 Normal 0 Visual: 0 No visual loss 0 Facial Palsy: 0 Normal, symmetrical 0 Motor - Left Arm 0 No drift 0 Motor - Right Arm 0 No drift 0 Motor - Left Leg 0 No drift 0 Motor: Right Leg 0 No drift 0 Limb Ataxia: 0 Absent 0 Sensory: 0 No loss 0 Best Language: 0 Normal 0 Dysathria: 0 Normal 0 Extinction and Inattention: 0 Normal 0 Total 0 Departure Departure: Impression: Primary Impression: Subarachnoid hemorrhage Additional Impressions: Nasal bone fx-closed Lab test positive for detection of COVID-19 virus Disposition: 02 SHORT TERM HOSPITAL Condition: STABLE Referrals: JJ BALDERRAMA (PCP) Problem Qualifiers Additional Impressions: Nasal bone fx-closed Encounter type: initial encounter Qualified Codes: S02.2XXA - Fracture of nasal bones, initial encounter for closed fracture CARLOS TILLEY APRN Apr 19, 2021 16:45 ELISABETH GUEVARA DO Apr 20, 2021 06:06
--- NOTE | 2021-04-19 16:57 | RAD ---
Exam: CT head and maxillofacial without contrast INDICATION: Hit in nose TECHNIQUE: Sequential axial images through the head and maxillofacial were obtained without the admin istration of IV contrast. Exposure: One or more of the following in the visualized dose reduction techniques were utilized for this examination: 1. Automated exposure control 2. Adjustment of the MA and/or KV according to patient size 3. Use of iterative of reconstructive technique Comparisons: None FINDINGS: Head: There is a subtle hyperdensity at the left frontal lobe sulcus series 2 image 17 of 30. There is no m idline shift or sulcal effacement. No acute vascular territory infarction is identified. [place]-white distinction is preserved. The ventricular system is within normal limits without compression hydrocephalus. The basal cisterns are well maintained. Face: The visualized portions of the paranasal sinuses and mastoid air cells are well-pneumatized. Mildly d isplaced bilateral nasal bone fractures are noted. Globes and orbital contents are normal. IMPRESSION: 1. Subtle hyperdensity at the left frontal lobe sulcus favored represent small amount of subarachnoi d hemorrhage. Follow-up MRI of the brain is recommended to exclude other causes. 2. Bilateral nasal bone fractures. FOR INTERNAL CODING PURPOSES Critical result: Findings discussed with CARLOS TILLEY APRN at 04/19/2021 4:55 PM. RESULT CODE: (C) Electronically signed by: Jarad Gibbs MD (04/19/2021 4:55 PM) [facility]
[2021-04-19 17:41] LABS: BASO % 0 % (0-3); EOS % 0 % (0-3); HEMATOCRIT 46.8 % (39.0-53.0); LYMPH # 0.7 x10^3/uL (1.0-4.8); LYMPH % 18 % (24-48); MEAN CORPUSCULAR HEMOGLOBIN 31 pg (25-35); MEAN CORPUSCULAR HGB CONC 34 g/dL (31-37); MEAN CORPUSCULAR VOLUME 91 fL (79-100); MONO # 0.5 x10^3/uL (0.0-1.1); MONO % 14 % (0-9); NEUT # 2.5 x10^3uL (1.8-7.7); NEUT % 68 % (31-73); PLATELET COUNT 195 x10^3/uL (140-400); RED BLOOD COUNT 5.17 x10^6/uL (4.30-5.70); RED CELL DISTRIBUTION WIDTH 12.9 % (11.5-14.5); WHITE BLOOD COUNT 3.7 x10^3/uL (4.0-11.0)
[2021-04-19 17:43] LABS: INFLUENZA A PATIENT NEGATIVE (NEGATIVE); INFLUENZA B PATIENT NEGATIVE (NEGATIVE)
[2021-04-19 17:45] LABS: CALCIUM 9.4 mg/dL (8.5-10.1); CREATININE 1.1 mg/dL (0.7-1.3); GFR 85.3; POTASSIUM 4.1 mmol/L (3.5-5.1)
[2021-04-19] MEDS ORDERED: NICOTINE 21MG PATCH. TD ONE (17:45)
[2021-04-19 17:53] LABS: ALBUMIN 4.8 g/dL (3.4-5.0); ALBUMIN/GLOBULIN RATIO 1.4 (1.0-1.7); TOTAL BILIRUBIN 0.5 mg/dL (0.2-1.0); TOTAL PROTEIN 8.3 g/dL (6.4-8.2)
[2021-04-19] MEDS ORDERED: ACETAMINOPHEN 500 MG TABLET PO ONE (18:45)
[2021-04-19] MEDS ORDERED: MORPHINE SULFATE 2 MG/ML DISP.SYRIN. IV ONE (18:45)
== END 2021-04-19 20:15 | disposition short-term general hospital (02) ==
LOC: ER 15:34
DX: S06.6X9A Traumatic subarachnoid hemorrhage with loss of consciousness of unspecified duration, initial encounter (principal); S02.2XXA Fracture of nasal bones, initial encounter for closed fracture; U07.1 COVID-19; J45.909 Unspecified asthma, uncomplicated; Z91.048 Other nonmedicinal substance allergy status; Z88.8 Allergy status to other drugs, medicaments and biological substances; W22.8XXA Striking against or struck by other objects, initial encounter; Y93.89 Activity, other specified; Y92.89 Other specified places as the place of occurrence of the external cause; Y99.8 Other external cause status
CPT/HCPCS: 36415; 70450; 70486; 80053; 85025; 85610; 85730; 87426; 87804; 96374; 99285; J2270

== ENCOUNTER → 2021-05-14 | Outpatient (CLI) | payer BC ==
[2021-04-19 16:08] VITALS: BP 97/63
--- NOTE | 2021-05-14 11:18 | RAD ---
EXAMINATION: CT HEAD/BRAIN WO CLINICAL HISTORY: FOLLOW UP HEMORRHAGE, FALL, HIT HEAD TECHNIQUE: Serial axial images without IV contrast were obtained from the vertex to the foramen magnu m. CT Dose Reduction Employed: One or more of the following individualized dose reduction techniques wer e utilized for this examination: 1. Automated exposure control 2. Adjustment of the mA and/or kV ac cording to patient size 3. Use of iterative reconstruction technique. COMPARISON: MRI brain 04/20/2021, CT head 04/19/2021 FINDINGS: Acute Change: No evidence of acute intracranial abnormality. Hemorrhage: No evidence of acute intracranial hemorrhage or extra-axial fluid collection. Mass Lesion/Mass Effect: Redemonstration of small focus of increased attenuation in the left frontal lobe corresponding to a cavernous malformation with associated developmental venous anomaly as demons trated on comparison MRI. No significant mass effect. Parenchyma: No significant volume loss. Parenchyma otherwise within normal limits for age. Ventricles: Ventricles within normal limits for age. Paranasal Sinuses and Skull Base: Visualized paranasal sinuses clear. Visualized skull base and soft tissues unremarkable. IMPRESSION: No evidence of acute intracranial abnormality or significant interval change. 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 Electronically signed by: Brayan Nolan DO (05/14/2021 11:16 AM) [facility]
== END ==
LOC: CT 10:30
PROVIDERS: ATTEND Neurological Surgery
DX: S06.6X Traumatic subarachnoid hemorrhage (principal); Q28.3 Other malformations of cerebral vessels; X58.XXXD Exposure to other specified factors, subsequent encounter
CPT/HCPCS: 70450